=== PATIENT | male | born 1980 | race Caucasian/White ===

== ENCOUNTER 2017-09-03 10:40 | Inpatient (IN) | payer OTHER ==
--- NOTE | 2017-09-03 12:06 | EDPHY ---
H & P Smoking Status: Never smoked Time Seen by Provider: 09/03/17 11:54 HPI/ROS: CHIEF COMPLAINT: Diarrhea, myalgias, fever HISTORY OF PRESENT ILLNESS: 37-year-old male presents to the emergency department by private vehicle with diarrhea, myalgias and fevers and chills. Patient received the influenza vaccine and pneumonia vaccine on Saturday morning , 3 days ago. That evening around 9:00 p.m. he began to feel diffuse myalgias and fever. He has had the flu shot in the past but has never had a problem. His sewer and inspector recommended that they had the pneumonia vaccine. Patient has redness, pain and swelling to his injection sites in his left arm. He has some pain in his left axilla as well. No chest pain or difficulty breathing. Feels that his symptoms are getting "worse "better". No abdominal pain or vomiting. No appetite. No recent travel. No known ill contacts. REVIEW OF SYSTEMS: Constitutional: As above Eyes: No double or blurry vision. ENT: No sore throat. Respiratory: No cough, no shortness of breath. Cardiac: No chest pain. Gastrointestinal: No abdominal pain, vomiting or diarrhea. Genitourinary: No dysuria. Musculoskeletal: No neck or back pain. Skin: No rashes. Neurological: No headache. (Ashlyn Lerner) Past Medical/Surgical History: Spondyloar arthritis (Ashlyn Lerner) Social History: (Ashlyn Lerner) Physical Exam: General Appearance: Alert, no distress. Temperature 37.5degrees, heart rate 94 , 99% on room air Eyes: Pupils equal and round. Extraocular motions are all intact. ENT: Mouth: Mucous membranes moist. Respiratory: No wheezing, rhonchi, or rales, lungs are clear to auscultation. Cardiovascular: Regular rate and rhythm. Gastrointestinal: Abdomen is soft and nontender, no masses, no rebound or guarding, bowel sounds normal. Neurological: Alert and oriented x 3, cranial nerves II through XII grossly intact Skin: Redness and warmth noted to his left humerus which is circumferential. He does have some lymphangitis. Nontender to palpate in the left axilla. Musculoskeletal: Nontender to palpate along the cervical, thoracic or lumbar spine. Neck is supple. Extremities: Full range of motion and no peripheral edema. Psychiatric: Patient is oriented X 3, there is no agitation. (Ashlyn Lerner) Constitutional: Initial Vital Signs Temperature (C) 37.5 C 09/03/17 10:51 Heart Rate 94 09/03/17 10:51 Respiratory Rate 16 09/03/17 10:51 Blood Pressure 124/66 H 09/03/17 10:51 O2 Sat (%) 99 09/03/17 10:51 O2 Delivery Mode Room Air Allergies/Adverse Reactions: No Known Allergies Allergy (Unverified 09/03/17 10:55) Home Medications: Medication Instructions Recorded Acetaminophen [Tylenol 325mg (*)] 325 mg PO Q6 PRN 09/03/17 Cholecalciferol Vit D3 [Vitamin D3 1,000 units PO DAILY 09/03/17 (*)] Cyanocobalamin [Vitamin B12 (*)] 1,000 mcg PO DAILY 09/03/17 Secukinumab [Cosentyx Pen] 150 mg SQ Q30D 09/03/17 Medical Decision Making - Diagnostics Imaging: I viewed and interpreted images myself - Diagnostics Imaging Results: Imaging Impressions Chest X-Ray 09/03/17 12:01 IMPRESSION: Normal chest x-ray. ED Course/Re-evaluation: 37-year-old male who is on immunosuppressive therapy for ankylosing spondylitis is presents to the emergency department with fever, arthralgias, and redness and pain to his left upper extremity after receiving pneumonia vaccine and flu shot. Patient has not been on any antibiotics recently. Does have reported very loose stools. Stool culture PCR has been ordered and is pending to rule out possibility of Clostridium difficile. Chest x-ray reveals no evidence of pneumonia. Urinalysis reveals no signs of urinary tract infection. The patient was also seen examined by Dr. Benjamin Myers. Patient will be admitted to the hospitalist. He was started on Ancef 1 g IV emergency department. Blood cultures are pending. Lactate was normal at 1.9. Patient does not meet SIRS criteria. (Ashlyn Lerner) Differential Diagnosis: Including but not limited to sepsis, cellulitis, medication reaction, electrolyte abnormality, dehydration (Ashlyn Lerner) Other Provider: PHYSICIAN DOCUMENTATION: The patient was evaluated and managed by the Physician Vice President Of Software Development and myself. I have reviewed the chart and agree with the findings and plan of care as documented. In addition, I examined the patient myself at 1350. History confirmed as some started Saturday after getting flu and Pneumovax in his left arm. Physical findings as follows: Patient has erythema around his vaccinations site on the left arm. It is a little bit indurated but no lymphangitis. It is mildly tender to palpation but no fluctuance. Considered acute local allergic reaction versus cellulitis. He feels sick and plan for admission for supportive care, will get empiric antibiotics for possible cellulitis for his left arm, Ancef. Does not have fluctuance to suggest abscess, does have immune compromise and SIRS response. Fasciitis unlikely; no crepitus, can range shoulder and elbow, not toxic. Spreading slowly, normal lactate and chem 7 panel. I am the secondary supervising physician. (Benjamin Myers) - Data Points Laboratory Results: Laboratory Results 09/03/17 12:00 09/03/17 12:00 09/03/17 09/03/17 09/03/17 13:35 13:35 12:18 WBC RBC Hgb Hct MCV MCH MCHC RDW Plt Count MPV Neut % (Auto) Lymph % (Auto) Mora % (Auto) Eos % (Auto) Baso % (Auto) Nucleat RBC Rel Count Absolute Neuts (auto) Absolute Lymphs (auto) Absolute Monos (auto) Absolute Eos (auto) Absolute Basos (auto) Absolute Nucleated RBC Immature Gran % Immature Gran # VBG Lactic Acid 1.9 mmol/L mmol/L (0.7-2.1) Sodium Potassium Chloride Carbon Dioxide Anion Gap BUN Creatinine Estimated GFR Glucose Calcium Urine Color YELLOW Urine Appearance CLEAR Urine pH 5.0 (5.0-7.5) Ur Specific [place] 1.026 (1.002-1.030) Urine Protein 2+ H (NEGATIVE) Urine Ketones 1+ H (NEGATIVE) Urine Blood 1+ H (NEGATIVE) Urine Nitrate NEGATIVE (NEGATIVE) Urine Bilirubin NEGATIVE (NEGATIVE) Urine Urobilinogen 4.0 EU H EU (0.2-1.0) Ur Leukocyte Esterase NEGATIVE (NEGATIVE) Urine RBC 1-3 /hpf /hpf (0-3) Urine WBC 1-3 /hpf /hpf (0-3) Ur Epithelial Cells Not Reported Urine Mucus TRACE /lpf /lpf (NONE-1+) Urine Glucose NEGATIVE (NEGATIVE) C. difficile Tox (PCR) Cancelled 09/03/17 09/03/17 12:00 12:00 WBC 23.60 10^3/uL H 10^3/uL (3.80-9.50) RBC 4.71 10^6/uL 10^6/uL (4.40-6.38) Hgb 14.6 g/dL g/dL (13.7-17.5) Hct 40.6 % % (40.0-51.0) MCV 86.2 fL D fL (81.5-99.8) MCH 31.0 pg pg (27.9-34.1) MCHC 36.0 g/dL g/dL (32.4-36.7) RDW 12.7 % % (11.5-15.2) Plt Count 198 10^3/uL 10^3/uL (150-400) MPV 9.5 fL fL (8.7-11.7) Neut % (Auto) 86.0 % H % (39.3-74.2) Lymph % (Auto) 6.9 % L % (15.0-45.0) Mora % (Auto) 5.6 % % (4.5-13.0) Eos % (Auto) 0.1 % L % (0.6-7.6) Baso % (Auto) 0.2 % L % (0.3-1.7) Nucleat RBC Rel Count 0.0 % % (0.0-0.2) Absolute Neuts (auto) 20.31 10^3/uL H 10^3/uL (1.70-6.50) Absolute Lymphs (auto) 1.63 10^3/uL 10^3/uL (1.00-3.00) Absolute Monos (auto) 1.31 10^3/uL H 10^3/uL (0.30-0.80) Absolute Eos (auto) 0.02 10^3/uL L 10^3/uL (0.03-0.40) Absolute Basos (auto) 0.05 10^3/uL 10^3/uL (0.02-0.10) Absolute Nucleated RBC 0.00 10^3/uL 10^3/uL (0-0.01) Immature Gran % 1.2 % H % (0.0-1.1) Immature Gran # 0.28 10^3/uL H 10^3/uL (0.00-0.10) VBG Lactic Acid Sodium 137 mEq/L mEq/L (134-144) Potassium 3.5 mEq/L mEq/L (3.5-5.2) Chloride 99 mEq/L mEq/L (97-110) Carbon Dioxide 22 mEq/l mEq/l (22-31) Anion Gap 16 mEq/L mEq/L (8-16) BUN 15 mg/dL mg/dL (7-23) Creatinine 1.1 mg/dL mg/dL (0.7-1.3) Estimated GFR > 60 Glucose 104 mg/dL H mg/dL (70-100) Calcium 9.3 mg/dL mg/dL (8.5-10.4) Urine Color Urine Appearance Urine pH Ur Specific [place] Urine Protein Urine Ketones Urine Blood Urine Nitrate Urine Bilirubin Urine Urobilinogen Ur Leukocyte Esterase Urine RBC Urine WBC Ur Epithelial Cells Urine Mucus Urine Glucose C. difficile Tox (PCR) Microbiology Results: MICROBIOLOGY 09/03/17 13:35 Stool Gastrointestinal Tract Panel (PCR) - Final No Organism Detected Medications Given: Acetaminophen (Tylenol) 650 mg PO Q4HRS PRN PRN Reason: Pain, Mild/Fever, Can Take PO Stop: 03/02/18 14:42 Last Admin: 09/03/17 19:49 Dose: 650 mg Hydromorphone/Sodium Chloride (Hydromorphone) 0.4 mg IVP Q4 PRN PRN Reason: SEVERE PAIN, UNABLE TO TAKE PO Stop: 09/13/17 16:02 Last Admin: 09/03/17 21:50 Dose: 0.4 mg Cefazolin Sodium/Dextrose (Ancef 1 Gm (Premix)) 50 mls @ 200 mls/hr IV Q8HRS TERRY PRN Reason: Protocol Stop: 10/03/17 21:59 Last Admin: 09/03/17 21:50 Dose: 50 mls Sodium Chloride (Ns) 1,000 mls @ 125 mls/hr IV CONT TERRY Stop: 03/02/18 15:29 Last Admin: 09/03/17 17:43 Dose: 1,000 mls Ondansetron HCl (Zofran) 4 mg IVP Q4HRS PRN PRN Reason: Nausea/Vomiting, Can't Take PO Stop: 03/02/18 14:42 Last Admin: 09/03/17 16:04 Dose: 4 mg Discontinued Medications Acetaminophen (Tylenol) 1,000 mg PO ONCE ONE Stop: 09/03/17 15:06 Last Admin: 09/03/17 15:06 Dose: 1,000 mg Hydromorphone HCl (Dilaudid) 0.5 mg IVP EDNOW ONE Stop: 09/03/17 16:04 Last Admin: 09/03/17 16:04 Dose: 0.5 mg Sodium Chloride (Ns) 1,000 mls @ 0 mls/hr IV EDNOW ONE; Wide Open PRN Reason: Protocol Stop: 09/03/17 12:12 Last Admin: 09/03/17 12:30 Dose: 1,000 mls Cefazolin Sodium/Dextrose (Ancef 1 Gm (Premix)) 50 mls @ 200 mls/hr IV EDNOW ONE PRN Reason: Protocol Stop: 09/03/17 14:35 Last Admin: 09/03/17 14:27 Dose: 50 mls Sodium Chloride (Ns) 1,000 mls @ 0 mls/hr IV ONCE ONE PRN Reason: Wide Open Stop: 09/03/17 14:22 Last Admin: 09/03/17 14:27 Dose: 1,000 mls Departure - Departure Disposition: [facility] Acute Clinical Impression: Myalgia, Cellulitis of left upper arm Fever Qualifiers: Fever type: unspecified Qualified Code(s): R50.9 - Fever, unspecified Diarrhea Qualifiers: Diarrhea type: unspecified type Qualified Code(s): R19.7 - Diarrhea, unspecified Condition: Good
[2017-09-03 12:10] LABS: % IMMATURE GRANULYOCYTES 1.2 % (0.0-1.1); ABSOLUTE IMMATURE GRANULOCYTES 0.28 10^3/uL (0.00-0.10); ADD DIFF? NO; ADD MORPH? NO; ADD SCAN? NO; ATYPICAL LYMPHOCYTE FLAG 0 (0-99); FRAGMENT RBC FLAG 0 (0-99); HEMATOCRIT 40.6 % (40.0-51.0); HEMOGLOBIN 14.6 g/dL (13.7-17.5); LEFT SHIFT FLG 10 (0-99); LIPEMIA HEMOLYSIS FLAG 90 (0-99); MEAN CELL VOLUME 86.2 fL (81.5-99.8); MEAN PLATELET VOLUME 9.5 fL (8.7-11.7); PLATELET CLUMPS FLAG 0 (0-99); PLATELET COUNT 198 10^3/uL (150-400); RED BLOOD CELL COUNT 4.71 10^6/uL (4.40-6.38); RED CELL DISTRIBUTION WIDTH 12.7 % (11.5-15.2)
[2017-09-03] MEDS ORDERED: NS 1,000 ML IV ONE ×2 (12:11→14:21)
[2017-09-03 12:28] LABS: ANION GAP 16 mEq/L (8-16); CALCIUM 9.3 mg/dL (8.5-10.4); CARBON DIOXIDE 22 mEq/l (22-31); CHLORIDE 99 mEq/L (97-110); CREATININE 1.1 mg/dL (0.7-1.3); GLOMERULAR FILTRATION RATE > 60; GLUCOSE 104 mg/dL (70-100); POTASSIUM 3.5 mEq/L (3.5-5.2); SODIUM 137 mEq/L (134-144)
[2017-09-03 14:09] LABS: COLOR YELLOW; LEUKOCYTE ESTERASE,URINE NEGATIVE (NEGATIVE); NITRITE,URINE NEGATIVE (NEGATIVE)
[2017-09-03 14:12] LABS: MUCUS TRACE /lpf (NONE-1+)
[2017-09-03] MEDS ORDERED: ONDANSETRON DISINTEGRATING 4 MG TAB PO PRN (14:43)
[2017-09-03] MEDS ORDERED: ONDANSETRON 4 MG/2 ML VIAL IVP PRN (14:43)
[2017-09-03] MEDS ORDERED: ACETAMINOPHEN 500 MG TAB ONE (15:03)
[2017-09-03] MEDS ORDERED: ACETAMINOPHEN 500 MG TAB PO ONE (15:05)
[2017-09-03] MEDS ORDERED: HYDROmorphONE/DILAUDID 1 MG/ML INJ IVP PRN (15:28)
[2017-09-03] MEDS ORDERED: HYDROmorphONE/DILAUDID 1 MG/ML INJ ONE (15:55)
[2017-09-03] MEDS ORDERED: HYDROmorphONE/DILAUDID 1 MG/ML INJ IVP ONE (16:03)
--- NOTE | 2017-09-03 16:35 | GHP ---
[f rep st] HISTORY AND PHYSICAL DATE OF ADMISSION: 09/03/2017 CHIEF COMPLAINT: Fevers, chills. HISTORY OF PRESENT ILLNESS: A 37-year-old male with history of ankylosing spondylitis on immunosuppression, presents with diarrhea and myalgias, fevers and chills starting on Saturday. He received his influenza and pneumonia vaccine on Saturday morning. That evening, he felt feverish. The next day, this progressed to fevers, chills, headache, decreased appetite. He began having diarrhea and has had up to 12 episodes since that time. No blood. No recent antibiotics. No dysuria. He then developed pain and swelling at the injection site of his left upper arm and axilla. No chest pain or shortness of breath. He states fever has been controlled with Tylenol and Advil, temp as high as 105 at home. No abdominal pain or vomiting. No recent travel. He, his and 5- month-old daughter had a cold 2 weeks ago. He said it lasted 1-2 days for him and felt better. REVIEW OF SYSTEMS: I completed a 10-point review of systems, negative except as noted in HPI. PAST MEDICAL HISTORY: Ankylosing spondylitis. PAST SURGICAL HISTORY: None. SOCIAL HISTORY: Lives in [place]. 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 Has a and daughter. No alcohol, tobacco, or illicits. HOME MEDICATIONS: Tylenol, vitamin B12, Co syntax 150 mg subcu daily, had previously been on other agents as well as Humira. He has been on these medications for 3 years. FAMILY HISTORY: Dad with type 2 diabetes and staph infections. PHYSICAL EXAMINATION: VITAL SIGNS: Temperature 37.5, blood pressure 124/66, heart rate 90s, respiration 16, 99% on room air. GENERAL: Uncomfortable, pale , shaking. HEENT: PERRLA. EOMI. Dry mucous membranes. Oropharynx clear without exudate or ulceration. CV: Regular rate and rhythm. No murmurs, gallops, rubs. LUNGS: Clear to auscultation bilaterally. ABDOMEN: Soft, nontender, nondistended. Positive bowel sounds. : No suprapubic tenderness. MUSCULOSKELETAL: 5/5 upper lower extremity strength. Left upper arm with a band of erythema and warmth. There is a small area of induration which appears to be the injection site. Very tender to touch. Good radial pulse. NEURO: 2 through 12 intact. PSYCH: Alert and oriented x3. LABS: WBC is 23, hemoglobin 14, hematocrit 40, platelets 198. Lactate is 1.9. Sodium 137, potassium 3.5, chloride 99, anion gap 16, creatinine 1.1, glucose 104, calcium 9.3. Urine +2 protein, +1 ketones, +1 blood. Respiratory, GI panel pending. X-ray personally reviewed by me negative for edema or PNA. Blood cultures pending. ASSESSMENT AND PLAN: 1. Systemic inflammatory response syndrome: Elevated white count here and reported fevers at home. Appears to have a left upper extremity cellulitis. IV Ancef. Ultrasound to rule out abscess given immunosuppression. Lactate is normal. 2. Acute pain: Left upper arm secondary to his infection. P.r.n. Dilaudid. 3. Leukocytosis: likely due cellulitis, but keep differential broad given chronic immunosuppression. Urinalysis and chest x-ray are negative. Blood cultures pending. Gastrointestinal and respiratory panel are pending. Continue antibiotics as above. 4. Diarrhea: Again gastrointestinal panel is pending. 5. Mild acute kidney injury: Creatinine is 1.1. Cont IVFs. 6. Diet: Regular. 7. Deep venous thrombosis prophylaxis: Lovenox. DISPOSITION: Patient warrants observation admission given acute fever, SIRS. Continue IV antibiotics and IV fluids. /[id number]/MODL MTDD
[2017-09-03] MEDS: NS 1,000 ML IV SCH (17:43)
[2017-09-03] MEDS: ACETAMINOPHEN 325 MG TAB PO PRN (19:49)
[2017-09-03] MEDS: HYDROmorphone HCL/NS/PF 0.4 MG/2 ML SYR IVP PRN (21:50)
[2017-09-04] MEDS: HYDROmorphone HCL/NS/PF 0.4 MG/2 ML SYR IVP PRN ×3 (00:41→21:08)
[2017-09-04] MEDS: ACETAMINOPHEN 325 MG TAB PO PRN ×2 (00:41→05:07)
[2017-09-04] MEDS: NS 1,000 ML IV SCH (00:41)
[2017-09-04 05:12] LABS: HEMATOCRIT 34.6 % (40.0-51.0); HEMOGLOBIN 11.7 g/dL (13.7-17.5); MEAN CELL HEMOGLOBIN 30.2 pg (27.9-34.1); MEAN CELL HEMOGLOBIN CONCENTR. 33.8 g/dL (32.4-36.7); MEAN CELL VOLUME 89.2 fL (81.5-99.8); RED BLOOD CELL COUNT 3.88 10^6/uL (4.40-6.38); RED CELL DISTRIBUTION WIDTH 13.1 % (11.5-15.2)
[2017-09-04 05:29] LABS: ANION GAP 10 mEq/L (8-16); CALCIUM 7.9 mg/dL (8.5-10.4); CARBON DIOXIDE 22 mEq/l (22-31); CHLORIDE 107 mEq/L (97-110); CREATININE 0.9 mg/dL (0.7-1.3); GLOMERULAR FILTRATION RATE > 60; GLUCOSE 97 mg/dL (70-100); POTASSIUM 3.7 mEq/L (3.5-5.2); SODIUM 139 mEq/L (134-144)
[2017-09-04] MEDS: ENOXAPARIN 40 MG/0.4 ML SYR SC SCH (09:42)
--- NOTE | 2017-09-04 09:53 | HOSPPROG ---
Hospitalist Progress Note Assessment/Plan: Patient is a 37-year-old male with history of ankylosing spondylitis and immunosuppression he also recently received the influenza vaccine.. He presented the emergency with diarrhea & myalgias. He also had associated fever and chills starting on Saturday. He recently received the flu and pneumonia vaccine. * left upper extremity cellulitis -Ancef -ultrasound does not show an abscess -had the influenza and pna vaccines in same arm and location *Immunosuppressed -on Cosentyx * sirs due to the cellulitis -wbc trending down -blood cx pending *rash/possible contact dermatitis vs reaction from abx -not pruritic * leukocytosis -repeat labs in a.m. * diarrhea -GI pathogen is negative * acute kidney injury -chemistry stable *Plan: will ask ID to see and get involved. Repeat labs in a.m. He will require another midnight stay/ needs iv abx and labs followed. Subjective: Mitul's left arm is painful and tender. Objective: Vital Signs Temp Pulse Resp BP Pulse Ox 37.3 C 78 16 119/53 L 95 09/04/17 07:16 09/04/17 07:16 09/04/17 07:16 09/04/17 07:16 09/04/17 07:16 Microbiology 09/03/17 16:45 Respiratory Panel (PCR) - Final Nasal, Sinus - Swab No Organism Detected Laboratory Results 09/04/17 05:04 09/04/17 05:04 09/03/17 09/04/17 09/05/17 05:59 05:59 05:59 Intake Total 5250 Balance 5250 - Physical Exam Constitutional: appears nourished Eyes: PERRL Ears, Nose, Mouth, Throat: hearing normal Cardiovascular: regular rate and rhythym, no murmur, rub, or gallop Respiratory: no respiratory distress Skin: warm, rash (flat rash/on abdomen) Musculoskeletal: full muscle strength Neurologic: AAOx3 Psychiatric: interacting appropriately, not anxious ICD10 Worksheet Patient Problems: Problems Problem Status Onset Cellulitis of left upper arm Acute Diarrhea Acute Fever Acute Myalgia Acute
[2017-09-04] MEDS ORDERED: IBUPROFEN 200 MG TAB PO PRN (13:32)
--- NOTE | 2017-09-04 14:28 | ASMTCMCOM ---
CM Note CM Note Notes: Spoke w/RN, anticipate pt will dc home w/support of when medically stable. CM available for any changes. Date Signed: 09/04/2017 02:27 PM Electronically Signed By:Beth Laura RN
--- NOTE | 2017-09-04 16:57 | PDMN ---
Medical Necessity Medical necessity: Patient meets INPT criteria per CUT TO LENGTH OPERATOR note and MCG M-70 Cellulitis (SIRS due to cellulitis; hx of ankylosing spondylitis and immunosuppression; awaiting ID consult; LOS will be > 2 midnights for ongoing IV Ancef, IV pain control, ongoing IV hydration for mild MUNDO.)
--- NOTE | 2017-09-05 00:16 | GCON ---
[f rep st] CONSULTATION INFECTIOUS DISEASE CONSULTATION DATE OF CONSULTATION: 09/04/2017 REFERRING PHYSICIAN: Neelima Abarca NP REASON FOR CONSULTATION: Left upper extremity cellulitis. HISTORY OF PRESENT ILLNESS: A 37-year-old male with a history of ankylosing spondylitis on Cosentyx for 6 months, presents to the emergency room yesterday with complaints of left arm pain, flu-like symptoms with myalgias and diarrhea, redness of his upper extremity, subjective fevers as well as night sweats. He has also had decreased appetite. He has not had any recent antibiotic therapy, but he did recently undergo an influenza and pneumococcal vaccination of his left upper extremity on August 31, 2017. His fever was as high as 105 at home. He presented to the emergency room for further evaluation. REVIEW OF SYSTEMS: A complete 10-point review of systems was performed and is negative except as mentioned in HPI. PAST MEDICAL HISTORY: Ankylosing spondylitis, previously on TNF inhibitors, now Cosentyx for 6 months with good response. He has also had an admission in the past for small bowel obstruction. PAST SURGICAL HISTORY: None. SOCIAL HISTORY: He lives in [place]. He is a software support engineer. He has a and a daughter who is 5-month-old. No alcohol, tobacco or illicits. ALLERGIES: NKDA. MEDICATIONS: The patient was started on Ancef 1 g IV q.8. His home medications include Tylenol, vitamin B12, Cosentyx 150 subcu daily. FAMILY HISTORY: Positive for diabetes. His mother has had history of cellulitis. PHYSICAL EXAMINATION: VITAL SIGNS: T-max 37.5, blood pressure 144/53, heart rate 72, respiratory rate 18, saturation 96% on room air. GENERAL: This is a very well-appearing male sitting in bed, in no acute distress. HEENT: Pupils are reactive bilaterally. Oropharynx: He has some oral ulcerations on the underside of his tongue, which are part of his primary disease process. NECK: Supple. No lymphadenopathy. CARDIOVASCULAR: Regular rate. No murmurs. CHEST : Clear to auscultation bilaterally. ABDOMEN: Soft, nontender. EXTREMITIES: His left upper arm was erythematous, sparing the most medial portion of his arm, but otherwise circumferential from his elbow to his shoulder with significant warmth and some lymphangitic tracking along the medial arm to his axilla. No lymph nodes in the axilla were palpated. He has significant tenderness to palpation. He had no limitation of range of motion. Otherwise, extremities were within normal limits. NEUROLOGIC: He is alert and oriented x4. Moving all 4 extremities equally. SKIN: No rashes other than cellulitic changes noted as above. LABORATORY: Initial white count is 23,000; today is 17.5, predominance of neutrophils with a left shift. Hematocrit 34 today. Platelets of 190. An ultrasound of the left upper extremity showed no DVT, but noted subcutaneous edema without evidence of abscess. A respiratory panel PCR and GI panel PCR were detected. GI panel PCR negative. Blood cultures from 09/03/2017, are pending. ASSESSMENT/PLAN: A 37-year-old male with ankylosing spondylitis on an interleukin inhibitor, who underwent a vaccine injection of his left upper extremity (patient is left-hand dominant) and subsequently developed cellulitis and lymphangitis of the left upper arm. The patient symptomatically improved overnight with less malaise, although erythema is fairly stable to incrementally worse following initiation of antibiotics. Reviewed pathogenesis of cellulitis and likely introduction of staph or strep associated with inoculation of vaccines. In this case, strongly suspect streptococcus based on clinical appearance. Would recommend continued Ancef 1 g IV q.8 and would initiate elevation of the left upper extremity. Could consider completing therapy as an outpatient, but would need to see further clinical improvement before discharge. This was explained to the patient that it may take another couple days in the hospital for significant improvement. Reviewed that his infection was not contagious to his or 5-month-old baby. Thank you for this consultation. We will continue to see him on a daily basis. /[id number]/MODL MTDD
[2017-09-05] MEDS: HYDROmorphone HCL/NS/PF 0.4 MG/2 ML SYR IVP PRN (05:39)
[2017-09-05 05:56] LABS: % IMMATURE GRANULYOCYTES 0.7 % (0.0-1.1); ABSOLUTE IMMATURE GRANULOCYTES 0.09 10^3/uL (0.00-0.10); ADD DIFF? NO; ADD MORPH? NO; ADD SCAN? YES; ATYPICAL LYMPHOCYTE FLAG 40 (0-99); FRAGMENT RBC FLAG 0 (0-99); HEMATOCRIT 35.6 % (40.0-51.0); HEMOGLOBIN 12.3 g/dL (13.7-17.5); LEFT SHIFT FLG 0 (0-99); LIPEMIA HEMOLYSIS FLAG 90 (0-99); MEAN CELL HEMOGLOBIN 30.8 pg (27.9-34.1); MEAN CELL HEMOGLOBIN CONCENTR. 34.6 g/dL (32.4-36.7); MEAN CELL VOLUME 89.2 fL (81.5-99.8); PLATELET CLUMPS FLAG 10 (0-99); PLATELET COUNT 216 10^3/uL (150-400); RED BLOOD CELL COUNT 3.99 10^6/uL (4.40-6.38); RED CELL DISTRIBUTION WIDTH 13.2 % (11.5-15.2)
[2017-09-05 06:07] LABS: ANION GAP 14 mEq/L (8-16); CALCIUM 8.3 mg/dL (8.5-10.4); CARBON DIOXIDE 20 mEq/l (22-31); CHLORIDE 108 mEq/L (97-110); CREATININE 0.9 mg/dL (0.7-1.3); GLOMERULAR FILTRATION RATE > 60; GLUCOSE 93 mg/dL (70-100); POTASSIUM 3.4 mEq/L (3.5-5.2); SODIUM 142 mEq/L (134-144)
[2017-09-05 06:32] LABS: SCAN POSITIVE
[2017-09-05 06:34] LABS: PLATELET ESTIMATE ADEQUATE (ADEQ)
[2017-09-05 08:07] VITALS: BP 105/64; PULSE 74; RESP 20; TEMP 99.1; O2SAT 95
[2017-09-05] MEDS: ENOXAPARIN 40 MG/0.4 ML SYR SC SCH (08:21)
[2017-09-05] MEDS ORDERED: PROTOCOL POTASSIUM 1 DOSE MISC PRN (09:27)
--- NOTE | 2017-09-05 09:29 | HOSPPROG ---
Hospitalist Progress Note Assessment/Plan: Patient is a 37-year-old male with history of ankylosing spondylitis and immunosuppression he also recently received the influenza vaccine.. He presented the emergency with diarrhea & myalgias. He also had associated fever and chills starting on Saturday. He recently received the flu and pneumonia vaccine. * left upper extremity cellulitis -Ancef/will change to Ceftriaxone dialy -ultrasound does not show an abscess -had the influenza and pna vaccines in same arm and location *Immunosuppressed -on Cosentyx * sirs due to the cellulitis -wbc trending down -blood cx show no growth *rash/possible contact dermatitis vs reaction from abx -not pruritic * leukocytosis -improving * diarrhea -GI pathogen is negative * acute kidney injury -chemistry stable *Plan: dc today/ he will come to for daily abx Subjective: Mitul is feeling well/ no complaints. Objective: Vital Signs Temp Pulse Resp BP Pulse Ox 37.3 C 74 20 105/64 95 09/05/17 08:00 09/05/17 08:00 09/05/17 08:00 09/05/17 08:00 09/05/17 08:00 Laboratory Results 09/05/17 05:35 09/05/17 05:35 - Physical Exam Constitutional: no apparent distress, appears nourished, not in pain Eyes: PERRL Ears, Nose, Mouth, Throat: hearing normal Respiratory: no respiratory distress Skin: other (left arm with redness/ erythma, /overall has improved) Neurologic: AAOx3 Psychiatric: interacting appropriately, not anxious ICD10 Worksheet Patient Problems: Problems Problem Status Onset Cellulitis of left upper arm Acute Diarrhea Acute Fever Acute Myalgia Acute
--- NOTE | 2017-09-05 09:30 | PCMIDPN ---
Assessment/Plan: # Left upper extremity cellulitis following vaccination, WBC improved, intensity of erythema also improved. Still fairly severe cellulitis likely mediated by Streptococcus. Will plan several more days of IV antibiotics infusion center. --Continue elevation and will transition to ceftriaxone 2 g IV daily for ease of administration. Palpation orders were written --Reviewed risks associated with antibiotics, Ceftriaxone is a medication given both intravenously. Similar to all antibiotics, monitor for signs of allergic reaction such as rash and difficulty breathing. Ceftriaxone or Rocephin is metabolized primarily in the liver and liver function will be monitored while you are on therapy. You should minimize alcohol intake. --If greater than 3 loose stools, severe abdominal cramping or fever please call our office for evaluation of potential complication of all antibiotics, called C. difficile-associated diarrhea . --patient will be evaluated in our clinic on Saturday and if clinical improvement could be transitioned to p.o. Keflex for 5 more days Care was coordinated with Neelima Abarca NP Subjective: PATIENT REPORTS DECREASED PAIN AND FEELING MORE ENERGETIC. DOES DESIRE TO GO HOME Objective: Vital Signs Temp Pulse Resp BP Pulse Ox 37.3 C 74 20 105/64 95 09/05/17 08:00 09/05/17 08:00 09/05/17 08:00 09/05/17 08:00 09/05/17 08:00 Laboratory Results 09/05/17 05:35 09/05/17 05:35 - Physical Exam General Appearance: alert, no apparent distress Respiratory: No accessory muscle use Extremities: erythema (Left upper arm band like erythema almost completely circumferential with a small medial area that is without erythema. Erythema has decreased in intensity today.) Skin: No rash Neuro/Psych: alert, normal mood/affect, oriented x 3 - Time Spent With Patient Time Spent with Patient: greater than 35 minutes Time Spent with Patient: Greater than 35 minutes spent on this patients care, greater than 50% of time spent counseling, educating, and coordinating care regarding the above mentioned plan. ICD10 Worksheet Patient Problems: Problems Problem Status Onset Cellulitis of left upper arm Acute Diarrhea Acute Fever Acute Myalgia Acute
[2017-09-05] MEDS ORDERED: cefTRIAXone 2 GM in D5W 50 ML IV SCH (10:00)
--- NOTE | 2017-09-05 10:14 | ASMTCMCOM ---
CM Note CM Note Notes: Spoke w/pt re; dc poc. Will dc home w/support of and come to hospital for outpt infusion, appointments set for 10am for 4 days. Pt to f/u with Dr Elise at 1pm on Saturday. CM available for any changes Date Signed: 09/05/2017 10:14 AM Electronically Signed By:Beth Laura RN
--- NOTE | 2017-09-05 11:29 | GDS ---
[f rep st] DISCHARGE SUMMARY DISCHARGE DIAGNOSES: 1. Left upper extremity cellulitis. 2. Immunosuppressed on Cosentyx. 3. Systemic inflammatory response syndrome due to cellulitis. 4. Leukocytosis. 5. Diarrhea. 6. Acute kidney injury. CONSULTATION: Dr. Nuris Elise HISTORY: Briefly, the patient is a 37-year-old male with a history of an ankylosing spondylolysis, who presented to the emergency room with complaints of left arm pain. He also had flu-like symptoms with associated myalgias and diarrhea. He has had a decreased appetite. He recently had the influenza & pneumococcal vaccine to the left upper extremity. He describes having high fevers at home. He was admitted for further care. HOSPITAL COURSE: 1. Left upper extremity cellulitis. This is likely an underlying strep infection. An ultrasound performed that does not show an abscess. He was treated with Ancef. He will be discharged on ceftriaxone. He will continue antibiotics throughout the weekend and come to [facility] for treatment. 2. Immunosuppressed. On Cosentyx. He has a history of ankylosing spondylitis. 3. SIRS due the cellulitis. His white blood cell count is improving. Blood cultures show no growth. 4. Leukocytosis. Improved. 5. Diarrhea. GI pathogen is negative. 6. Acute kidney injury. Chemistry is stable. DISCHARGE CONDITION: Stable. Blood pressure is 105/64, heart rate is 74, respiratory rate is 20, O2 sats on room air 95%, temperature is 37.3 Celsius. MEDICATIONS AT DISCHARGE: Please see the EMR. DISCHARGE INSTRUCTIONS: 1. To come to [facility] for antibiotics. 2. Follow up with Radha Irizarry Nurse Practitioner at [facility] on Saturday. 3. If he develops fever, chills, worsening arm pain or increase in loose stool , to return to the ER. Greater than 30 minutes discharging and coordinating care. /[id number]/MODL MTDD
--- NOTE | 2017-09-06 09:49 | ASDISCHSUM ---
Discharge Information Plan Status:Home with No Needs Medically Cleared to Leave: Discharge Date:09/05/2017 11:32 AM CM D/C Disposition:Home, Routine, Self-Care ADT D/C Disposition:Home, Routine, Self-Care Projected Discharge Date:09/05/2017 11:32 AM Transportation at D/C:Family Discharge Delay Reason: Follow-Up Date:09/05/2017 11:32 AM Discharge Slot: Final Diagnosis: Placement Information Patient Contact Information Contact Name:VENITA Relationship: [address] [facility] Work Phone: City:[place] Phone: State/Zip Code:[place] [address] Email: Financial Information Financial Class:HMO and PPO Plans Primary Plan Desc:[employer] PPO Primary Plan Number:[id number] Secondary Plan Desc: Secondary Plan Number: Assessment Information [facility] CM Progress Note CM Note CM Note Notes: Spoke w/RN, anticipate pt will dc home w/support of when medically stable. CM available for any changes. Date Signed: 09/04/2017 02:27 PM Electronically Signed By:Beth Laura RN [facility] CM Progress Note CM Note CM Note Notes: Spoke w/pt re; dc poc. Will dc home w/support of and come to hospital for outpt infusion, appointments set for 10am for 4 days. Pt to f/u with Dr Elise at 1pm on Saturday. CM available for any changes Date Signed: 09/05/2017 10:14 AM Electronically Signed By:Beth Laura RN Intervention Information
--- NOTE | 2017-09-09 17:17 | PQFORM ---
PHYSICIAN QUERY FORM Needs Your Response This query form is being sent to you to assure this patient record is coded properly. Please respond to the question below: OFFICE CORRESPONDENT QUESTION: Dear Dr. Lipscomb, Patient presented with redness, pain and swelling at the injection site of an influenza vaccine received 3 days before visit. Patient was later diagnosed with cellulitis of the left arm. After study, can this patient cellulitis be further specified? Infection following immunization/vaccine Adverse effect of other viral vaccines Other more appropriate diagnosis Unable to determine Thank you TYRESE Murcia [facility]/Coding Dept. [phone] INSTRUCTIONS FOR RESPONSE: Answer question by clicking on the "Edit Document" button. Move cursor to area below the stars. When complete, hit "Save." Click on the "Sign" button, then click "Sign" again. Type in your PIN and hit "Enter." MTDD
--- NOTE | 2017-09-10 16:20 | PQFORM ---
PHYSICIAN QUERY FORM Needs Your Response This query form is being sent to you to assure this patient record is coded properly. Please respond to the question below: SENIOR ARCHITECT/DESIGN MANAGER QUESTION: Dear EDUARD Abarca, Patient presented with redness, pain and swelling at the injection site of an influenza vaccine received 3 days before this visit. Patient was later diagnosed with cellulitis of the left arm. After study, can this patient cellulitis be further specified? ____x__ Infection following immunization/vaccine Adverse effect of other viral vaccines Other more appropriate diagnosis Unable to determine Thank you Siria Philip, MANAGER [employer] [facility]/Coding Dept. [phone] INSTRUCTIONS FOR RESPONSE: Answer question by clicking on the "Edit Document" button. Move cursor to area below the stars. When complete, hit "Save." Click on the "Sign" button, then click "Sign" again. Type in your PIN and hit "Enter." MTDD
== END 2017-09-05 11:32 | disposition home or self-care (01) | DRG 868 ==
LOC: F3E 16:52 → OBSVTOIN 09-04 15:35
PROVIDERS: ADMIT Internal Medicine; ATTEND Internal Medicine
DX: T88.0XXA Infection following immunization, initial encounter (principal); L03.114 Cellulitis of left upper limb; R19.7 Diarrhea, unspecified; N17.9 Acute kidney failure, unspecified; R65.10 Systemic inflammatory response syndrome (SIRS) of non-infectious origin without acute organ dysfunction; B95.5 Unspecified streptococcus as the cause of diseases classified elsewhere; M45.9 Ankylosing spondylitis of unspecified sites in spine
CPT/HCPCS: 96365; G0378; J0690; J0696; J1170; J1650; J2405

== ENCOUNTER 2017-10-26 09:25 | Emergency (ER) | payer OTHER ==
[2017-10-26 09:47] VITALS: RESP 16
[2017-10-26] MEDS ORDERED: NS 1,000 ML IV ONE (10:10)
[2017-10-26] MEDS ORDERED: KETOROLAC 30 MG/1 ML SDV IVP ONE (10:11)
[2017-10-26] MEDS ORDERED: HYOSCYAMINE SULFATE 0.125 MG TAB SL ONE (10:11)
[2017-10-26 10:17] LABS: PLATELET COUNT 434 10^3/uL (150-400)
[2017-10-26] MEDS ORDERED: IOPAMIDOL (ISOVUE-300) 100 ML BTL ONE (11:10)
[2017-10-26 12:26] VITALS: BP 124/68; PULSE 84; TEMP 97.7; O2SAT 95
--- NOTE | 2017-10-26 12:28 | EDPHY ---
H & P Stated Complaint: abd pain and diarrhea .since yesterday Time Seen by Provider: 10/26/17 10:01 HPI/ROS: This patient complains of feeling of a "full stomach" feeling followed by cramping diffuse abdominal pain 7/10 intensity more prominent in the lower belly. He has associated loose stools since last night. He has associated URI symptoms consisting of nasal congestion and a cough that started last week. The cough is nearly resolved but nasal congestion persists. Due to increasing pain in lower belly patient came in for evaluation brought in by his by private vehicle. He notes no exacerbating factors for symptoms except worsening with movement. ROS: No fevers or chills. No other constitutional symptoms HEENT as per HPI. Otherwise negative Pulmonary: Cough nearly resolved. No shortness of breath or pleuritic complaints. No hemoptysis. Cardiovascular: No lightheadedness. No chest pain. No palpitations. GI as per HPI. He has some nausea but no vomiting. No bloody stools. : No dysuria or testicular pain. Integumentary: No skin rash Complete review of symptoms is otherwise negative. Source: Patient Exam Limitations: No limitations - Personal History Current Tetanus/Diphtheria Vaccine: Unsure Current Tetanus Diphtheria and Acellular Pertussis (TDAP): Unsure - Medical/Surgical History Hx Asthma: No Hx Chronic Respiratory Disease: No Hx Diabetes: No Hx Cardiac Disease: No Hx Renal Disease: No Hx Cirrhosis: No Hx Alcoholism: Yes Hx HIV/AIDS: No Hx Splenectomy or Spleen Trauma: No Other PMH: SPONDYLAR ARTHRITIS. had some hernia issue in past - Family History Significant Family History: No pertinent family hx - Social History Smoking Status: Former smoker Alcohol Use: Occasionally Drug Use: None Additional Social History: No recent foreign travel. No suspect food ingestion - Physical Exam Exam: General Appearance: Alert, no distress, but moderate active belly pain. Eyes: Pupils equal and round no pallor or injection. ENT, Mouth: Mucous membranes moist. Respiratory: There are no retractions, lungs are clear to auscultation. Cardiovascular: Regular rate and rhythm. No murmur gallop or rub Gastrointestinal: Normoactive, soft, moderate to exquisite right lower quadrant tenderness with mild left lower quadrant tenderness. No guarding or rebound. No organomegaly. : No testicular s tenderness. No CVA tenderness Neurological: GCS 15 Skin: Warm and dry, no rashes. Musculoskeletal: Neck is supple nontender. Extremities are symmetrical, full range of motion. Psychiatric: Mood and affect are normal DIFFERENTIAL DIAGNOSIS: After history and physical exam differential diagnosis was considered for gastroenteritis, appendicitis, diverticulitis, UTI, ureteral stone Constitutional: Initial Vital Signs Temperature (C) 36.4 C 10/26/17 09:41 Heart Rate 90 10/26/17 09:41 Respiratory Rate 16 10/26/17 09:41 Blood Pressure 130/83 H 10/26/17 09:41 O2 Sat (%) 98 10/26/17 09:41 O2 Delivery Mode Room Air Allergies/Adverse Reactions: No Known Allergies Allergy (Verified 10/26/17 09:47) Home Medications: Medication Instructions Recorded Secukinumab [Cosentyx Pen] 150 mg SQ Q30D 09/03/17 HYOSCYAMINE SULFATE [LEVSIN-SL] 0.125 - 0.25 mg SL Q6 PRN #20 10/26/17 tab.subl Ondansetron Odt [Zofran Odt] 4 - 8 mg PO Q4PRN PRN #4 tab 10/26/17 Medical Decision Making - Diagnostics Imaging Results: Imaging Impressions Abdomen CT 10/26/17 10:37 Impression: 1. Focal soft tissue thickening/possible intraluminal mass just above the ileocecal valve measuring approximately 3.2 x 1.7 x 2.6 cm. Not associated with terminal ileitis or small bowel obstruction. Colonoscopy is recommended. 2. No evidence for active Crohn's disease. Results called and discussed with SABRA CRAMER, at 10/26/2017 12:11 General information for patients regarding this examination can be found at [email or web address]. If you have questions or comments about this report, please contact me at (hospital) or [phone] (cell). Imaging: Discussed imaging studies w/ order caller Radiologist ED Course/Re-evaluation: IV normal saline bolus Toradol and Levsin with partial relief of pain CT abdomen pelvis with IV contrast ruled out appendicitis, however did reveal bowel wall thickening verses a mass just proximal to the ileocecal valve without warrants follow-up gastroenterology for colonoscopy. Discussion: Findings most consistent with viral gastroenteritis of her above radiographic finding warrants follow-up with gastroenterology. I counseled the patient regarding this. Today's workup ruled out appendicitis or acute abdomen. He feels improved after hydration and medications here. Answered all the patient's questions and time discharge she is comfortable without active nausea or significant abdominal pain. - Data Points Laboratory Results: Laboratory Results 10/26/17 10:05 10/26/17 10:05 10/26/17 10/26/17 10/26/17 10:05 10:05 10:05 WBC 13.76 10^3/uL H 10^3/uL (3.80-9.50) RBC 5.72 10^6/uL 10^6/uL (4.40-6.38) Hgb 16.8 g/dL g/dL (13.7-17.5) Hct 49.0 % % (40.0-51.0) MCV 85.7 fL fL (81.5-99.8) MCH 29.4 pg pg (27.9-34.1) MCHC 34.3 g/dL g/dL (32.4-36.7) RDW 12.8 % % (11.5-15.2) Plt Count 434 10^3/uL H 10^3/uL (150-400) MPV 8.7 fL fL (8.7-11.7) Neut % (Auto) 87.5 % H % (39.3-74.2) Lymph % (Auto) 7.3 % L % (15.0-45.0) Russell % (Auto) 3.5 % L % (4.5-13.0) Eos % (Auto) 1.0 % % (0.6-7.6) Baso % (Auto) 0.1 % L % (0.3-1.7) Nucleat RBC Rel Count 0.0 % % (0.0-0.2) Absolute Neuts (auto) 12.04 10^3/uL H 10^3/uL (1.70-6.50) Absolute Lymphs (auto) 1.00 10^3/uL 10^3/uL (1.00-3.00) Absolute Monos (auto) 0.48 10^3/uL 10^3/uL (0.30-0.80) Absolute Eos (auto) 0.14 10^3/uL 10^3/uL (0.03-0.40) Absolute Basos (auto) 0.02 10^3/uL 10^3/uL (0.02-0.10) Absolute Nucleated RBC 0.00 10^3/uL 10^3/uL (0-0.01) Immature Gran % 0.6 % % (0.0-1.1) Immature Gran # 0.08 10^3/uL 10^3/uL (0.00-0.10) Sodium 144 mEq/L mEq/L (134-144) Potassium 4.3 mEq/L mEq/L (3.5-5.2) Chloride 102 mEq/L mEq/L (97-110) Carbon Dioxide 22 mEq/l mEq/l (22-31) Anion Gap 20 mEq/L H mEq/L (8-16) BUN 15 mg/dL mg/dL (7-23) Creatinine 1.0 mg/dL mg/dL (0.7-1.3) Estimated GFR > 60 Glucose 94 mg/dL mg/dL (70-100) Calcium 9.7 mg/dL mg/dL (8.5-10.4) Urine Color YELLOW Urine Appearance CLEAR Urine pH 6.0 (5.0-7.5) Ur Specific [place] 1.015 (1.002-1.030) Urine Protein NEGATIVE (NEGATIVE) Urine Ketones TRACE H (NEGATIVE) Urine Blood NEGATIVE (NEGATIVE) Urine Nitrate NEGATIVE (NEGATIVE) Urine Bilirubin NEGATIVE (NEGATIVE) Urine Urobilinogen 0.2 EU EU (0.2-1.0) Ur Leukocyte Esterase NEGATIVE (NEGATIVE) Urine Glucose NEGATIVE (NEGATIVE) Medications Given: Discontinued Medications Hyoscyamine Sulfate (Levsin, Hyomax-Sl) 0.25 mg SL ONCE ONE Stop: 10/26/17 10:12 Last Admin: 10/26/17 10:30 Dose: 0.25 mg Sodium Chloride (Ns) 1,000 mls @ 0 mls/hr IV EDNOW ONE; Wide Open PRN Reason: Protocol Stop: 10/26/17 10:11 Last Admin: 10/26/17 10:02 Dose: 1,000 mls Ketorolac Tromethamine (Toradol) 15 mg IVP EDNOW ONE Stop: 10/26/17 10:12 Last Admin: 10/26/17 10:30 Dose: 15 mg Departure - Departure Disposition: Home, Routine, Self-Care Clinical Impression: Infectious colitis, Intestinal mass Condition: Good Instructions: Gastroenteritis (ED) Additional Instructions: Diagnoses: Gastroenteritis/infectious colitis 2. Thickening of bowel versus mass The thickening we see in 1 area of your bowel is likely attributable to current infectious process. However, this finding warrants follow-up with gastroenterology for colonoscopy sometime within the next 2-4 weeks. Plan: Drink plenty fluids. Light diet to feel improved Zofran for nausea vomiting if needed Levsin for cramping if needed Ibuprofen for pain if needed Call Dr. Lima, GI specialist arrange follow-up appointment for further evaluation Return for any significant worsening despite the treatment plan Referrals: WALE ROSARIO [Primary Care Provider] - As per Instructions Teo Lima MD [Medical Doctor] - As per Instructions Prescriptions: HYOSCYAMINE SULFATE [LEVSIN-SL] 0.125 - 0.25 mg SL Q6 PRN #20 tab.subl PRN Reason: Abdominal cramping Ondansetron Odt [Zofran Odt] 4 - 8 mg PO Q4PRN PRN #4 tab PRN Reason: Vomiting
== END 2017-10-26 12:55 | disposition home or self-care (01) ==
LOC: CED 09:25
DX: A09 Infectious gastroenteritis and colitis, unspecified (principal); K63.9 Disease of intestine, unspecified; E86.9 Volume depletion, unspecified; Z87.891 Personal history of nicotine dependence
CPT/HCPCS: 74177-PO; 80048-PO; 81003-PO; 85025-PO; 96374; J1885; Q9967

== ENCOUNTER → 2018-08-13 | Outpatient (CLI) | payer OTHER | LOC: FIMAGING 12:28 | PROVIDERS: ATTEND Family Medicine | DX: S62.327A Displaced fracture of shaft of fifth metacarpal bone, left hand, initial encounter for closed fracture (principal) ==